=== PATIENT | male | born 1960 | race Caucasian/White ===

== ENCOUNTER → 2017-04-27 | Outpatient (REF) | payer OTHER ==
[~2017-04-27] MED LIST: DAKINSHS TOP; IBUP-1022 PO; OXAY1TAB; OXYC1TAB23 PO; PERCOCET PO
== END ==
LOC: M LAB REF 16:33
PROVIDERS: ATTEND Surgery
DX: S81.802A Unspecified open wound, left lower leg, initial encounter (principal); X58.XXXA Exposure to other specified factors, initial encounter; Y92.89 Other specified places as the place of occurrence of the external cause; Y93.89 Activity, other specified; Y99.8 Other external cause status

== ENCOUNTER 2017-05-02 12:19 | Inpatient (IN) | payer OTHER ==
[~2017-05-02] VITALS: Ht 177.8 cm; Wt 88.6 kg
[2017-05-02] MEDS ORDERED: IBUP-1022 PO (12:36)
[2017-05-02] MEDS ORDERED: OXYC1TAB23 PO (12:36)
[2017-05-02] MEDS ORDERED: OXAY1TAB (12:36)
[2017-05-02] MEDS ORDERED: MORPHINE 4 MG/ML 1ML SYRINGE IV ONE (13:30)
[2017-05-02] MEDS ORDERED: ONDANSETRON 4MG/2ML VIAL (J2405) IV ONE (13:30)
[2017-05-02 13:41] LABS: BASO % 0.4 % (0.0-1.0); EOS # 0.2 K/mm3 (0.0-0.50); EOS % 2.1 % (0.0-3.0); LARGE UNSTAINED CELL # 0.3 K/mm3 (0.0-0.4); LARGE UNSTAINED CELL % 2.6 % (0.0-4.0); LYMPH # 1.6 K/mm3 (1.5-4.5); LYMPH % 14.2 % (24.0-44.0); MEAN CORPUSCULAR HEMOGLOBIN 31.4 pg (27.0-33.0); MEAN CORPUSCULAR VOLUME 92.4 fl (80.0-96.0); MONO # 0.9 K/mm3 (0.0-0.8); MONO % 7.9 % (0.0-5.0); NEUTROPHILS % 72.7 % (36.0-66.0); PLATELET COUNT, AUTOMATED 293 k/mm3 (150-450); RED CELL DISTRIBUTION WIDTH 13.1 % (11.5-14.5); WHITE BLOOD COUNT 11.1 K/mm3 (4.0-10.0)
[2017-05-02 13:43] LABS: INR 0.97
[2017-05-02 14:01] LABS: ANION GAP 4 MEQ/L (8-16); BLOOD UREA NITROGEN 12 MG/DL (7-18); CALCIUM LEVEL 9.3 MG/DL (8.5-10.1); CARBON DIOXIDE LEVEL 31 MEQ/L (21-32); CHLORIDE LEVEL 103 MEQ/L (98-107); CREATININE FOR GFR 0.87 MG/DL (0.70-1.30); GLOMERULAR FILTRATION RATE > 60.0 (>56); GLUCOSE, FASTING 81 MG/DL (70-105); POTASSIUM SERUM 3.8 MEQ/L (3.5-5.1); SODIUM LEVEL 138 MEQ/L (136-145)
--- NOTE | 2017-05-02 14:37 | REP ---
REASON: Chest pain. COMPARISON: Frontal view obtained as part of an abdominal series 09/13/2006. FINDINGS: The technique utilized in obtaining the radiograph has magnified the cardiac silhouette and accentuated the interstitial markings. The superior mediastinal structures are midline. The cardiac silhouette is unremarkable in size, shape, and position. The diaphragmatic surfaces of the lungs are regular, and the costophrenic angles are clear. The pulmonary sethi are clear. The imaged osseous structures are intact. The CP angle and a portion of the right lower lung field was not included on this semiupright limited portable exam. I would recommend a repeat to include all of both lung bases if clinically relevant. IMPRESSION: There is no acute cardiopulmonary disease. Signed by Jhoan Benitez DO 05/03/2017 11:28 A
[2017-05-02] MEDS ORDERED: PIPERACILLIN/TAZOBACTAM SOD 4.5 GM in D5W MINI-BAG PLUS 50 ML IV ONE (15:00)
--- NOTE | 2017-05-02 15:21 | REP ---
REASON: Pain and swelling. TECHNIQUE: Multiple ultrasonographic images of the deep venous structures of the thigh were obtained from the common femoral vein to the popliteal vein along with Doppler interrogation and color flow Doppler images. FINDINGS: There is no abnormal echogenic material seen within any of the visualized deep venous structures that would suggest acute thrombosis. Coaptation is unremarkable throughout. Doppler interrogation shows an expected response to respiratory variability and augmentation. The color flow images show what appears to be a normal vascular pattern throughout. There is a 4.7 x 1 x 3.4 cm sized mixed, but predominantly hypoechoic mass in the posterior popliteal fossa suggestive of a Tavarez's cyst. IMPRESSION: There is no ultrasonographic evidence of deep venous thrombosis involving any of the visualized deep venous structures of the right thigh, as described above. Signed by Jhoan Benitez DO 05/03/2017 11:29 A
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
[2017-05-02] MEDS: PIPERACILLIN/TAZOBACTAM SOD 3.375 GM in D5W MINI-BAG PLUS 50 ML IV SCH (21:11)
[2017-05-02] MEDS: PERCOCET 5MG/325MG TAB PO PRN (21:12)
[2017-05-02 22:00] VITALS: BP 137/88
[2017-05-03] MEDS: PIPERACILLIN/TAZOBACTAM SOD 3.375 GM in D5W MINI-BAG PLUS 50 ML IV SCH ×4 (04:14→21:04)
[2017-05-03] MEDS: PERCOCET 5MG/325MG TAB PO PRN ×2 (04:20→10:28)
[2017-05-03 06:00] VITALS: BP 138/62
[2017-05-03] MEDS ORDERED: PERCOCET 5MG/325MG TAB PO ONE (12:45)
[2017-05-03] MEDS ORDERED: PERCOCET 5MG/325MG TAB PO PRN (12:45)
[2017-05-03] MEDS: oxyCODONE 10 MG CR TAB PO SCH ×2 (13:40→21:04)
[2017-05-03 14:00] VITALS: BP 139/92
[2017-05-03] MEDS: DAKIN'S 0.25% HALF-STRENGTH SOLN 480 ML TOP SCH ×2 (14:00→22:00)
--- NOTE | 2017-05-03 18:52 | REP ---
Right tibia-fibula series: 05/03/2017: Comparison is a CT tibia-fibula 05/02/2017. Clinical history: CT showed fracture through the fibular head. There is an oblique transverse fracture through the fibular head with fragmentation of the lateral margin. There is a soft tissue injury lateral to the fibular head and other soft tissue injury at the mid calf lateral to the mid shaft of the fibula and posterior. I see no radiopaque foreign body on the four images. No other fracture or finding. Signed by Ceasar Greenwood MD 05/03/2017 07:13 P
[2017-05-03 18:57] VITALS: BP 132/75
[2017-05-03 22:00] VITALS: BP 127/81
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
[2017-05-04] MEDS: PERCOCET 5MG/325MG TAB PO PRN ×2 (01:04→13:56)
[2017-05-04] MEDS: PIPERACILLIN/TAZOBACTAM SOD 3.375 GM in D5W MINI-BAG PLUS 50 ML IV SCH ×4 (05:01→22:45)
[2017-05-04] MEDS: DAKIN'S 0.25% HALF-STRENGTH SOLN 480 ML TOP SCH ×3 (05:15→22:00)
[2017-05-04 06:00] VITALS: BP 155/63
[2017-05-04] MEDS: oxyCODONE 10 MG CR TAB PO SCH ×2 (09:20→21:30)
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
[2017-05-04] MEDS ORDERED: PERCOCET 5MG/325MG TAB PO PRN (11:15)
[2017-05-04 14:00] VITALS: BP 145/83
[2017-05-04 17:22] LABS: ALBUMIN 2.9 GM/DL (3.2-5.2); ANION GAP 9 MEQ/L (8-16); BLOOD UREA NITROGEN 8 MG/DL (7-18); CARBON DIOXIDE LEVEL 30 MEQ/L (21-32); CHLORIDE LEVEL 102 MEQ/L (98-107); CREATININE FOR GFR 0.81 MG/DL (0.70-1.30); GLOMERULAR FILTRATION RATE > 60.0 (>56); GLUCOSE, FASTING 106 MG/DL (70-105); PHOSPHORUS LEVEL 3.6 MG/DL (2.5-4.9); POTASSIUM SERUM 4.1 MEQ/L (3.5-5.1); SODIUM LEVEL 141 MEQ/L (136-145)
[2017-05-04 22:00] VITALS: BP 125/71
[2017-05-05] MEDS: PIPERACILLIN/TAZOBACTAM SOD 3.375 GM in D5W MINI-BAG PLUS 50 ML IV SCH ×4 (03:07→20:47)
[2017-05-05] MEDS: PERCOCET 5MG/325MG TAB PO PRN ×2 (03:09→15:43)
[2017-05-05 06:00] VITALS: BP 122/77
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
[2017-05-05] MEDS: DAKIN'S 0.25% HALF-STRENGTH SOLN 480 ML TOP SCH ×4 (09:21→22:00)
[2017-05-05] MEDS: oxyCODONE 10 MG CR TAB PO SCH ×2 (09:22→20:47)
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
[2017-05-05 14:00] VITALS: BP 139/73
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
[2017-05-05 22:00] VITALS: BP 118/73
[2017-05-05 23:25] VITALS: BP 144/79
[2017-05-05] MEDS ORDERED: MIDAZOLAM INJ 2 MG/2 ML VIAL (J2250) As Ordered ONE ×2 (23:36→23:55)
[2017-05-05] MEDS ORDERED: fentaNYL 100 MCG/2 ML INJECTION (J3010) As Ordered ONE (23:36)
[2017-05-05] MEDS ORDERED: LIDOCAINE 2% INJ 100 MG/5 ML SDV (FOR ANES.) As Ordered ONE (23:41)
[2017-05-05] MEDS ORDERED: PROPOFOL 200 MG/20 ML VIAL As Ordered ONE (23:41)
[2017-05-05] MEDS ORDERED: ONDANSETRON 4MG/2ML VIAL (J2405) As Ordered ONE (23:41)
[2017-05-06] VITALS (9 sets, daily range): BP systolic 130–143; BP diastolic 72–88
[2017-05-06] MEDS: MEPERIDINE INJ 25 MG/ML VIAL (J2175) IV PRN ×2 (00:34→00:40)
[2017-05-06] MEDS ORDERED: MEPERIDINE INJ 25 MG/ML VIAL (J2175) As Ordered ONE (00:38)
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
[2017-05-06] MEDS ORDERED: HYDROmorphone HCL 1 MG/ML SYRINGE (J1170) As Ordered ONE (00:43)
[2017-05-06] MEDS ORDERED: fentaNYL 100 MCG/2 ML INJECTION (J3010) IV PRN (00:45)
[2017-05-06] MEDS ORDERED: METOCLOPRAMIDE INJ 10MG/2ML VIAL (J2765) IV PRN (00:45)
[2017-05-06] MEDS ORDERED: ONDANSETRON 4MG/2ML VIAL (J2405) IV PRN (00:45)
[2017-05-06] MEDS ORDERED: LR 1,000 ML IV SCH (00:45)
[2017-05-06] MEDS ORDERED: PERCOCET 5MG/325MG TAB PO PRN (00:45)
[2017-05-06] MEDS: HYDROmorphone HCL 1 MG/ML SYRINGE (J1170) IV PRN ×5 (00:46→01:18)
[2017-05-06] MEDS ORDERED: NS 1,000 ML IV SCH (00:48)
[2017-05-06] MEDS ORDERED: EPIDURAL/PCA KEYS XX PRN (01:00)
[2017-05-06] MEDS ORDERED: NALOXONE INJ 0.4 MG/1 ML VIAL (J2310) IV PRN (01:00)
[2017-05-06] MEDS ORDERED: NALBUPHINE HCL 10 MG/ML AMP (J2300) IV PRN (01:00)
[2017-05-06] MEDS ORDERED: diphenhydrAMINE INJ 50MG/ML VIAL (J1200) IV PRN (01:00)
[2017-05-06] MEDS ORDERED: MORPHINE 1MG/ML IN 0.9% NACL 100ML IV BAG IV PRN ×2 (01:00→19:57)
[2017-05-06] MEDS: DAKIN'S 0.25% HALF-STRENGTH SOLN 480 ML TOP SCH ×3 (05:12→21:25)
[2017-05-06] MEDS: PIPERACILLIN/TAZOBACTAM SOD 3.375 GM in D5W MINI-BAG PLUS 50 ML IV SCH ×4 (05:19→21:23)
[2017-05-06] MEDS ORDERED: MORPHINE 10 MG/ML 1ML VIAL IM ONE (18:15)
[2017-05-06] MEDS ORDERED: MORPHINE 10 MG/ML 1ML VIAL IV ONE (18:15)
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
[2017-05-07] MEDS: DAKIN'S 0.25% HALF-STRENGTH SOLN 480 ML TOP SCH (05:37)
[2017-05-07] MEDS: PIPERACILLIN/TAZOBACTAM SOD 3.375 GM in D5W MINI-BAG PLUS 50 ML IV SCH ×2 (05:37→10:22)
[2017-05-07 06:00] VITALS: BP 131/80
[2017-05-07] MEDS ORDERED: DAKINSHS TOP (11:33)
[2017-05-07] MEDS ORDERED: PERCOCET PO (11:33)
[2017-05-07] MEDS: PERCOCET 5MG/325MG TAB PO PRN (13:30)
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
== END 2017-05-07 14:26 | disposition home or self-care (01) | DRG 721 ==
LOC: M ED 12:19 → M ED INP 15:04 → M MS5PR 20:30 → OBSVTOIN 05-05 16:20
PROVIDERS: ADMIT Surgery Vascular Surgery; ATTEND Surgery Vascular Surgery
PROC: 0JBN0ZZ Excision of Right Lower Leg Subcutaneous Tissue and Fascia, Open Approach (ICD-10-PCS; principal; 2017-05-05 20:00)
DX: T81.4XXA Infection following a procedure, initial encounter (principal); S82.831B Other fracture of upper and lower end of right fibula, initial encounter for open fracture type I or II; M21.371 Foot drop, right foot; L03.115 Cellulitis of right lower limb; Y83.8 Other surgical procedures as the cause of abnormal reaction of the patient, or of later complication, without mention of misadventure at the time of the procedure; X58.XXXA Exposure to other specified factors, initial encounter; Y92.9 Unspecified place or not applicable

== ENCOUNTER 2018-06-29 09:15 | Outpatient (REF) | payer OTHER ==
[2018-07-03 10:08] LABS: H PYLORI STOOL ANTIGEN Negative (Negative)
== END 2018-06-30 ==
LOC: M SFHCCLAY 09:15
DX: K21.9 Gastro-esophageal reflux disease without esophagitis (principal)

== ENCOUNTER → 2020-01-18 | Outpatient (REF) | payer OTHER ==
[2020-01-18 12:48] LABS: ALBUMIN 3.9 GM/DL (3.2-5.2); ALT/SGPT 35 U/L (12-78); BILIRUBIN,TOTAL 0.2 MG/DL (0.2-1.0); BLOOD UREA NITROGEN 20 MG/DL (7-18); CALCIUM LEVEL 9.3 MG/DL (8.5-10.1); CARBON DIOXIDE LEVEL 29 MEQ/L (21-32); CHLORIDE LEVEL 110 MEQ/L (98-107); CHOLESTEROL LEVEL 195 MG/DL (<200); CHOLESTEROL RISK RATIO 4.239 (<5); CREATININE FOR GFR 0.76 MG/DL (0.70-1.30); GLOMERULAR FILTRATION RATE > 60.0 (>56); GLUCOSE, FASTING 100 MG/DL (70-100); HDL CHOLESTEROL 46 MG/DL (>40); LDL CHOLESTEROL 133 MG/DL (<100); NON-HDL-C 149 MG/DL; POTASSIUM SERUM 4.9 MEQ/L (3.5-5.1); SODIUM LEVEL 141 MEQ/L (136-145); TOTAL PROTEIN 6.8 GM/DL (6.4-8.2); TRIGLYCERIDES LEVEL 82 MG/DL (<150)
== END ==
LOC: M SFHCCLAY 07:23
PROVIDERS: ATTEND Family Medicine
DX: Z00.00 Encounter for general adult medical examination without abnormal findings (principal); Z13.220 Encounter for screening for lipoid disorders; Z13.1 Encounter for screening for diabetes mellitus; Z12.11 Encounter for screening for malignant neoplasm of colon

== ENCOUNTER → 2021-11-19 | Outpatient (REF) | payer OTHER ==
[2021-11-19 12:16] LABS: ALBUMIN 4.2 GM/DL (3.2-5.2); BILIRUBIN,DIRECT 0.2 MG/DL (0.0-0.2); BILIRUBIN,TOTAL 0.5 MG/DL (0.2-1.0); TOTAL PROTEIN 6.9 GM/DL (6.4-8.2)
== END ==
LOC: M SFHCCLAY 07:57
PROVIDERS: ATTEND Family Medicine
DX: R10.9 Unspecified abdominal pain (principal)

== ENCOUNTER → 2022-03-31 | Outpatient (REF) | payer OTHER ==
[2022-03-31 11:54] LABS: HEMOGLOBIN A1c 5.3 %
[2022-03-31 12:02] LABS: CHOLESTEROL RISK RATIO 3.833 (<5)
== END ==
LOC: M SFHCCLAY 07:26
PROVIDERS: ATTEND Family Medicine
DX: Z00.00 Encounter for general adult medical examination without abnormal findings (principal); Z13.220 Encounter for screening for lipoid disorders; Z13.1 Encounter for screening for diabetes mellitus

== ENCOUNTER → 2022-04-09 | Outpatient (CLI) | payer OTHER | LOC: M RAD 09:34 | PROVIDERS: ATTEND Family Medicine | DX: Z12.2 Encounter for screening for malignant neoplasm of respiratory organs (principal); F17.210 Nicotine dependence, cigarettes, uncomplicated ==

== ENCOUNTER → 2022-04-09 | Outpatient (CLI) | payer OTHER | LOC: M RAD 09:40 | PROVIDERS: ATTEND Family Medicine | DX: Z12.2 Encounter for screening for malignant neoplasm of respiratory organs (principal); F17.210 Nicotine dependence, cigarettes, uncomplicated ==

== ENCOUNTER → 2023-11-17 | Outpatient (REF) | payer OTHER ==
[2023-11-17 17:48] LABS: ALKALINE PHOSPHATASE 67 U/L (46-116); ALT/SGPT 29 U/L (7.0-40); AST/SGOT 14 U/L (<34); BILIRUBIN,TOTAL 0.4 MG/DL (0.3-1.2); BLOOD UREA NITROGEN 11 MG/DL (9-23); CALCIUM LEVEL 8.9 MG/DL (8.3-10.6); CARBON DIOXIDE LEVEL 27 MMOL/L (20-31); CHLORIDE LEVEL 109 MMOL/L (98-107); CHOLESTEROL LEVEL 164 MG/DL (<200); CHOLESTEROL RISK RATIO 3.33 (<5); CREATININE FOR GFR 0.76 MG/DL (0.70-1.30); GLOMERULAR FILTRATION RATE > 60.0 (>49); GLUCOSE, FASTING 120 MG/DL (74-106); HDL CHOLESTEROL 49.2 MG/DL (>40); LDL CHOLESTEROL 101.4 MG/DL (<100); NON-HDL-C 114.8 MG/DL; POTASSIUM SERUM 4.4 MMOL/L (3.5-5.1); SODIUM LEVEL 141 MMOL/L (136-145); TOTAL PROTEIN 6.4 G/DL (5.7-8.2); TRIGLYCERIDES LEVEL 67 MG/DL (<150)
== END ==
LOC: M SFHCCLAY 11:29
PROVIDERS: ATTEND Nurse Practitioner Family
DX: J44.9 Chronic obstructive pulmonary disease, unspecified (principal); F17.210 Nicotine dependence, cigarettes, uncomplicated

== ENCOUNTER → 2024-02-17 | Outpatient (CLI) | payer BC, MEDICAID, OTHER, SELFPAY | LOC: M RAD 11:01 | PROVIDERS: ATTEND Nurse Practitioner Family | DX: Z87.891 Personal history of nicotine dependence (principal) ==